=== PATIENT | female | born 1960 | race Hispanic/Latino ===

== ENCOUNTER 2021-03-14 07:24 | Observation (INO) | payer OTHER ==
[~2021-03-14] VITALS: Ht 157.5 cm; Wt 50.8 kg
[2021-03-14] VITALS (19 sets, daily range): BP systolic 129–157; BP diastolic 59–79
[2021-03-14] MEDS ORDERED: MORPHINE 2 MG SYG IVP SCH (08:00)
[2021-03-14] MEDS ORDERED: ONDANSETRON 4MG INJ IVP SCH (08:00)
[2021-03-14 08:09] LABS: BASOPHILS % (AUTO) 0.7 % (0.0-5.0); EOSINOPHILS % (AUTO) 3.8 % (0.0-8.0); HEMATOCRIT 39.4 % (36-48); LYMPHOCYTES % (AUTO) 25.3 % (21.0-51.0); MONOCYTES % (AUTO) 7.6 % (3.0-13.0); NEUTROPHILS % (AUTO) 62.3 % (40.0-77.0); PLATELET COUNT (AUTO) 245 K/uL (130-400); RED BLOOD CELL COUNT(AUTO) 4.06 MIL/uL (4.00-5.50); RED CELL DISTRIBUTION WIDTH 13.1 % (11.0-15.5); WHITE BLOOD COUNT (AUTO) 6.9 K/uL (4.8-10.8)
[2021-03-14 08:20] LABS: APPEARANCE,URINE CLEAR (CLEAR); BILIRUBIN,URINE NEGATIVE (NEGATIVE); COLOR,URINE YELLOW (YELLOW); GLUCOSE, URINE (UA) 100 mg/dL (NEGATIVE); KETONES,URINE NEGATIVE (NEGATIVE); LEUKOCYTE ESTERASE ,URINE TRACE (NEGATIVE); NITRATE,URINE NEGATIVE (NEGATIVE); OCCULT BLOOD,URINE NEGATIVE (NEGATIVE); PROTEIN,URINE NEGATIVE (NEGATIVE); UROBILINOGEN,URINE 0.2 mg/dL (0.2-1.0)
[2021-03-14 08:22] LABS: ALBUMIN 3.3 g/dL (3.5-5.0); BILIRUBIN,TOTAL 0.2 mg/dL (0.2-1.0); CREATININE 0.6 mg/dL (0.5-1.5); TOTAL PROTEIN, SERUM 6.6 g/dL (6.0-8.3)
[2021-03-14 08:24] LABS: BACTERIA,URINE Rare /HPF (None Seen); RBC,URINE 0-1 /HPF (0-1); SQUAMOUS EPITHELIAL CELL,UR Rare /HPF (0-2); WBC,URINE 0-1 /HPF (0-1)
[2021-03-14] MEDS: CEFOXITIN SODIUM 1 GM VIAL IVP SCH (08:45)
[2021-03-14] MEDS ORDERED: BUPIVACAINE/PF 0.5% 30ML VIAL ONE (09:04)
[2021-03-14] MEDS ORDERED: NACL 0.9% 1000ML 1,000 ML IV ONE (09:21)
[2021-03-14] MEDS ORDERED: GLYCOPYRROLATE 1 MG/5 ML SYRINGE ONE (12:21)
[2021-03-14] MEDS ORDERED: DEXAMETHASONE SOD PHOSPHATE 10MG/ML 1ML VIAL ONE (12:21)
[2021-03-14] MEDS ORDERED: LIDOCAINE PF 100MG/5ML (2%) SYRINGE 5ML ONE (12:21)
[2021-03-14] MEDS ORDERED: SUCCINYLCHOLINE CHLORIDE 20 MG/ML 10 ML VIAL ONE (12:21)
[2021-03-14] MEDS ORDERED: PROPOFOL 10 MG/ML 20ML VIAL IV ONE (12:21)
[2021-03-14] MEDS ORDERED: ONDANSETRON 4MG INJ ONE (12:21)
[2021-03-14] MEDS ORDERED: ROCURONIUM 10MG/1ML SYR 10 MG/ML ML ONE (12:22)
[2021-03-14] MEDS ORDERED: FENTANYL CITRATE PF 50 MCG/1 ML 2ML VIAL ONE (12:22)
[2021-03-14] MEDS ORDERED: NEOSTIGMINE 5MG/5ML SYR IV ONE (12:22)
[2021-03-14] MEDS ORDERED: MIDAZOLAM HCL 1 MG/ML 2ML VIAL ONE (12:22)
[2021-03-14] MEDS ORDERED: GENTAMICIN SULFATE 0.3% 3.5 GM OPHTH OINT ONE (12:53)
== END 2021-03-14 15:10 | disposition home or self-care (01) ==
LOC: EDH 07:24 → EDHIP 07:25 → DAHIP 14:15
PROVIDERS: ADMIT Surgery; ATTEND Surgery
DX: K81.0 Acute cholecystitis (principal); R11.2 Nausea with vomiting, unspecified; E11.9 Type 2 diabetes mellitus without complications; I10 Essential (primary) hypertension; Z79.4 Long term (current) use of insulin
CPT/HCPCS: 36415; 47562; 71046; 80053; 81001; 82150; 82948 ×2; 83690; 85025; 93005; 96361; 96374; 99285; A4215; A4221; A4222; A4223; A4649 ×2; A4663; C1769 ×3; G0378 ×6; J0330; J1100; J2001; J2250; J2405; J2704; J2710; J3010; J3490 ×2; J7030 ×2; J0694

== ENCOUNTER → 2024-10-17 | Outpatient (CLI) | payer OTHER ==
--- NOTE | 2024-10-17 15:16 | HMCIMG ---
US ARTERIAL BILAT LOW EXT DUPL HISTORY: No additional history given. COMPARISON: None TECHNIQUE: Bilateral lower extremity arterial Doppler ultrasound study was performed. FINDINGS: Normal triphasic and biphasic arterial waveforms are noted in the common femoral, deep femoral, superficial femoral, popliteal, left anterior tibial, posterior tibial and dorsalis pedal arteries. Abnormal monophasic arterial waveforms are seen in the right distal popliteal artery, right anterior tibial, posterior tibial and dorsalis pedal arteries. On the right, the peak systolic velocity of the common femoral artery is 150 cm/s, the proximal femoral artery is 80 cm/s, the mid femoral artery is 98 cm/s, the distal femoral artery is 95 cm/s, the proximal popliteal artery is 89 cm/s, the distal popliteal artery is 115 cm/s, the anterior tibial artery is 78 cm/s, the posterior tibial artery artery is 94 cm/s,and the dorsalis pedal artery is 78 cm/s. On the left, the peak systolic velocity of the common femoral artery is 232 cm/s, the proximal femoral artery is 108 cm/s, the mid femoral artery is 98 cm/s, the distal femoral artery is 81 cm/s, the proximal popliteal artery is 78 cm/s, the distal popliteal artery is 103 cm/s, the anterior tibial artery is 61 cm/s, the posterior tibial artery artery is 61 cm/s,and the dorsalis pedal artery is 42 cm/s. IMPRESSION: 1. Atherosclerotic disease. 2. Otherwise normal triphasic and biphasic arterial waveforms noted of the lower extremity artery system.
--- NOTE | 2024-10-17 15:17 | HMCIMG ---
US VENOUS DOPPLER BILATERAL HISTORY: Varicose veins COMPARISON: None TECHNIQUE: Bilateral lower extremity venous Doppler ultrasound study was performed. FINDINGS: The common femoral, femoral, popliteal, and posterior tibial veins are visualized. Normal flow with augmentation and compressibilities are demonstrated. The greater saphenous veins are also seen and grossly patent. IMPRESSION: 1. No evidence of deep venous thrombosis is seen.
== END | disposition home or self-care (01) ==
LOC: RAH 13:12
PROVIDERS: ATTEND Internal Medicine
DX: I83.893 Varicose veins of bilateral lower extremities with other complications (principal); I70.90 Unspecified atherosclerosis; L98.491 Non-pressure chronic ulcer of skin of other sites limited to breakdown of skin; E11.51 Type 2 diabetes mellitus with diabetic peripheral angiopathy without gangrene
CPT/HCPCS: 93925; 93970

== ENCOUNTER → 2025-06-11 | Outpatient (CLI) | payer OTHER ==
--- NOTE | 2025-06-11 15:29 | HMCSR ---
APPROVED REPORT EXAM: Two-dimensional and M-mode echocardiogram with Doppler and color Doppler. INDICATION ICD: I51.89 2D Dimensions RVDd2.7 cmLVEF(%)49.9 (>50%)LVED Vol(simp.)35.0 mL IVSd0.7 (0.7-1.1cm)FS(%)24 %LVES Vol(simp.)16.0 mL LVDd3.2 (3.8-5.6cm)LA (2D)2.5 (1.6-4.0cm)LVEF(%, simp.)55 % PWd0.7 (0.7-1.1cm)Ao Root(2D)2.4 (2.0-3.7cm)LA ESV INDEX (BP)10.84 mL/m2 IVSs0.7 cmLVOT diam1.8 (1.8-2.4cm) LVDs2.4 (2.5-4.0cm)IVC diam0.7 cm PWs1.0 cm M-Mode Dimensions EPSS0.8 cm LA (MM)3.9 (1.6-4.0cm) Ao Root(MM)2.3 (2.0-3.7cm) Aortic Valve AoV Vmax0.9 m/Deisy Peak GR3.5 mmHgLVOT Vmax0.9 m/s AoV VTI0.2 mAo Mean GR2.1 mmHgLVOT VTI0.16 m VANITA (VMAX)2.47 cm2AVA (VTI) 2.5 cm2 Mitral Valve MV E Vmax50.8 cm/sDECEL Ddmc911 ms MV A Vmax75.8 cm/sP 1/2 T48 ms E/A ratio0.7MVA (PHT)4.5 cm2 TDI E/E' Medial8.4E/E' Lateral8.4 Medial E' Peak V6.02 cm/sLateral E' Peak V6.07 cm/s Pulmonary Valve PV Vmax0.7 m/sPV VTI0.13 mPV Mean GR1.2 mmHg PV Peak GR2.1 mmHg Left Ventricle The left ventricle is normal size. There is normal LV segmental wall motion. There is normal left shaylee tricular wall thickness. LVEF is 55-60%. The left ventricular diastolic function is normal. Right Ventricle The right ventricle is normal size. The right ventricular systolic function is normal. Atria The left atrium size is normal. The right atrium size is normal. Aortic Valve The aortic valve is normal in structure. No aortic regurgitation is present. There is no aortic valvu lar stenosis. Mitral Valve The mitral valve is normal in structure. There is trace mitral valve regurgitation noted. There is no mitral valve stenosis. Tricuspid Valve The tricuspid valve is normal in structure. There is trace of tricuspid valve regurgitation noted. Pulmonic Valve Pulmonic valve is not well visualized. There is no pulmonic valvular regurgitation. Great Vessels The aortic root is normal in size. The IVC is normal in size and collapses >50% with inspiration. Pericardium There is no pericardial effusion. Other Information Quality : Adequate Conclusion The left ventricle is normal size. LVEF is 55-60% with normal LV segmental wall motion. The left ventricular diastolic function is normal. The right ventricular systolic function is normal. Both atria are normal in size. No hemodynamically significant valvular abnormalities. There is no pericardial effusion.
--- NOTE | 2025-06-11 16:05 | HMCIMG ---
US VENOUS DOPPLER BILATERAL REASON: Localized edema COMPARISON: None Technique: Bilateral venous doppler ultrasound was performed with spectral analysis and color flow imaging technique. FINDINGS: There is a normal appearance of the common femoral, deep femoral, the profunda femoris and popliteal veins. Proximal calf veins appear normal as well. There is normal response to compression and augmentation. There is no evidence of deep venous thrombosis. IMPRESSION: Normal bilateral lower extremity venous Doppler ultrasound.
--- NOTE | 2025-06-12 07:23 | HMCIMG ---
EXAMINATION: DUPLEX ULTRASOUND EXAMINATION OF THE BILATERAL LOWER EXTREMITY ARTERIES. CLINICAL HISTORY: Non pressure chronic ulcer of right heel and mid foot. COMPARISON: Bilateral lower extremity arterial doppler dated 10/17/2024. FINDINGS: Peak systolic velocities within the right lower arteries are as follows: Common femoral artery: 158 cm/s. Superficial femoral artery: 82 cm/s at proximal, 109 cm/s at mid, and 89 cm/s at distal segments. Popliteal artery: 80 cm/s at proximal and 69 cm/s at distal segments. Posterior tibial artery: 71 cm/s. Anterior tibial artery: 58 cm/s. Dorsalis pedis artery: Not assessed due to bandages. The right lower limb arteries demonstrate monophasic waveforms in all arteries. Peak systolic velocities within the left lower arteries are as follows: Common femoral artery: 174 cm/s. Superficial femoral artery: 80 cm/s at proximal, 84 cm/s at mid, and 82 cm/s at distal segments. Popliteal artery: 80 cm/s at proximal and 75 cm/s at distal segments. Posterior tibial artery: 56 cm/s. Anterior tibial artery: 28 cm/s. Dorsalis pedis artery: 17 cm/s. The left lower limb arteries demonstrate triphasic to biphasic waveforms in all arteries other than the anterior tibial and dorsalis pedis arteries which demonstrate monophasic waveforms. There is intimal wall thickening in both the lower limb arteries. IMPRESSION: Mild intimal wall thickening in both the lower limb arteries. The right lower limb arteries demonstrate monophasic waveforms in all arteries. The left lower limb arteries demonstrate triphasic to biphasic waveforms in all arteries other than the anterior tibial and dorsalis pedis arteries which demonstrate monophasic waveforms. No flow limiting lesions. /[place]
== END | disposition home or self-care (01) ==
LOC: RAH 12:58
PROVIDERS: ATTEND Internal Medicine
DX: L97.411 Non-pressure chronic ulcer of right heel and midfoot limited to breakdown of skin (principal); I51.89 Other ill-defined heart diseases
CPT/HCPCS: 93306; 93925; 93970